=== PATIENT | female | born 1985 | race Two or more races ===

== ENCOUNTER 2020-08-22 06:18 | Day surgery (SDC) | payer MEDICAID, SELFPAY ==
[2020-08-19 15:34] LABS: BASOPHILS % (AUTO) 0.5 % (0.0-2.0); EOSINOPHILS # (AUTO) 0.2 K/uL (0-0.4); EOSINOPHILS % (AUTO) 1.8 % (0.0-4.0); HEMOGLOBIN 10.4 g/dL (12.0-16.0); LYMPHOCYTES # (AUTO) 1.3 K/uL (2.5-16.5); LYMPHOCYTES % (AUTO) 12.1 % (20.5-51.1); MEAN CORPUSCULAR HEMOGLOBIN 22 pg (27-31); MEAN CORPUSCULAR HGB CONC 32 g/dL (33-37); MEAN CORPUSCULAR VOLUME 67.9 fL (80-94); MONOCYTES # (AUTO) 0.6 K/uL (0.8-1.0); MONOCYTES % (AUTO) 5.5 % (1.7-9.3); NEUTROPHILS # (AUTO) 8.3 K/uL (1.8-7.7); NEUTROPHILS % (AUTO) 80.1 % (42.2-75.2); PLATELET COUNT (AUTO) 242 K/uL (140-450); RED BLOOD CELL COUNT(AUTO) 4.86 MIL/uL (4.20-5.40); RED CELL DISTRIBUTION WIDTH 17.9 % (11.6-13.7); WHITE BLOOD COUNT (AUTO) 10.4 K/uL (4.8-10.8)
[2020-08-19 15:41] LABS: BILIRUBIN,URINE NEGATIVE (NEGATIVE); BLOOD, URINE 3+ (NEGATIVE); COLOR,URINE YELLOW (YELLOW); LEUKOCYTE ESTERASE ,URINE 1+ (NEGATIVE); NITRITE, URINE NEGATIVE (NEGATIVE); PH,URINE 5.5 (5.0-9.0); UGLUCOSE NEGATIVE (NEGATIVE)
[2020-08-19 15:49] LABS: ALBUMIN 3.1 g/dL (3.4-5.0); ANION GAP 12.2 (8-16); APPEARANCE,URINE HAZY (CLEAR); CARBON DIOXIDE 26.4 mmol/L (21-32); CREATININE 0.7 mg/dL (0.6-1.3); POTASSIUM 3.6 mmol/L (3.5-5.1); TOTAL BILIRUBIN 0.3 mg/dL (0.0-1.0)
[2020-08-19 16:27] LABS: RBC,URINE >100 /HPF (0-5); WBC,URINE 20-60 /HPF (0-5)
[2020-08-21 12:42] LABS: BASOPHILS % (AUTO) 0.4 % (0.0-2.0); BILIRUBIN,URINE NEGATIVE (NEGATIVE); BLOOD, URINE TRACE-I (NEGATIVE); COLOR,URINE YELLOW (YELLOW); EOSINOPHILS # (AUTO) 0.2 K/uL (0-0.4); EOSINOPHILS % (AUTO) 1.9 % (0.0-4.0); HEMATOCRIT 32.5 % (36-48); LEUKOCYTE ESTERASE ,URINE TRACE (NEGATIVE); LYMPHOCYTES # (AUTO) 1.2 K/uL (2.5-16.5); LYMPHOCYTES % (AUTO) 12.3 % (20.5-51.1); MEAN CORPUSCULAR HEMOGLOBIN 21 pg (27-31); MEAN CORPUSCULAR HGB CONC 31 g/dL (33-37); MEAN CORPUSCULAR VOLUME 69.4 fL (80-94); MONOCYTES # (AUTO) 0.4 K/uL (0.8-1.0); MONOCYTES % (AUTO) 4.4 % (1.7-9.3); NEUTROPHILS # (AUTO) 7.8 K/uL (1.8-7.7); NITRITE, URINE NEGATIVE (NEGATIVE); PLATELET COUNT (AUTO) 237 K/uL (140-450); RED BLOOD CELL COUNT(AUTO) 4.68 MIL/uL (4.20-5.40); RED CELL DISTRIBUTION WIDTH 17.8 % (11.6-13.7); UGLUCOSE 1+ (NEGATIVE); WHITE BLOOD COUNT (AUTO) 9.7 K/uL (4.8-10.8)
[2020-08-21 12:43] LABS: APPEARANCE,URINE HAZY (CLEAR)
[2020-08-21 12:53] LABS: RBC,URINE 0-5 /HPF (0-5)
[2020-08-21 12:56] LABS: ALBUMIN 2.9 g/dL (3.4-5.0); ANION GAP 11.1 (8-16); CARBON DIOXIDE 26.5 mmol/L (21-32); CREATININE 0.7 mg/dL (0.6-1.3); POTASSIUM 3.6 mmol/L (3.5-5.1); TOTAL BILIRUBIN 0.3 mg/dL (0.0-1.0); YEAST,URINE Few /HPF (None Seen)
[~2020-08-22] VITALS: Ht 165.1 cm; Wt 106.1 kg
[2020-08-22] MEDS ORDERED: methylPREDNISolone SS 40 MG/ML VIAL IVP SCH (07:45)
[2020-08-22] MEDS ORDERED: METOCLOPRAMIDE 10 MG/2 ML INJ VIAL ONE (07:54)
[2020-08-22] MEDS ORDERED: SEVOFLURANE 250 ML BTL INH ONE (07:54)
[2020-08-22] MEDS ORDERED: ROCURONIUM 50 MG/5 ML VIAL IV ONE (07:54)
[2020-08-22] MEDS ORDERED: ONDANSETRON 4 MG/2 ML VIAL ONE (07:54)
[2020-08-22] MEDS ORDERED: LIDOCAINE 2% 100 MG/5 ML SYR IVP ONE (07:54)
[2020-08-22] MEDS ORDERED: methylPREDNISolone SS 40 MG/ML VIAL ONE (07:54)
[2020-08-22] MEDS ORDERED: PROPOFOL 200 MG/20 ML VIAL IV ONE (07:54)
[2020-08-22] MEDS ORDERED: fentaNYL citrate 0.05 MG/ML VIAL IVP PRN (08:20)
[2020-08-22] MEDS ORDERED: LACTATED RINGERS 1,000 ML IV SCH (08:20)
[2020-08-22] MEDS ORDERED: ONDANSETRON 4 MG/2 ML VIAL IVP PRN (08:20)
== END 2020-08-22 11:15 | disposition home or self-care (01) ==
LOC: MDS 06:18 → MMU 06:19 → MDS 11:15
PROVIDERS: ATTEND Obstetrics & Gynecology
DX: O34.32 Maternal care for cervical incompetence, second trimester (principal); O99.512 Diseases of the respiratory system complicating pregnancy, second trimester; J45.909 Unspecified asthma, uncomplicated; O99.612 Diseases of the digestive system complicating pregnancy, second trimester; K21.9 Gastro-esophageal reflux disease without esophagitis; O99.012 Anemia complicating pregnancy, second trimester; E66.9 Obesity, unspecified; D64.9 Anemia, unspecified; Z3A.15 15 weeks gestation of pregnancy; Z79.899 Other long term (current) drug therapy
CPT/HCPCS: 36415; 59320; 80053; 81001; 82948; 85025; 86886; 86900; 86901; 87086; J2001; J2405; J2704; J2765; J2920; J3490; J7120; U0003

== ENCOUNTER 2020-09-07 19:57 | Emergency (ER) | payer MEDICAID, SELFPAY ==
[~2020-09-07] VITALS: Ht 167.6 cm; Wt 123.8 kg
[2020-09-07 20:05] VITALS: BP 131/80
--- NOTE | 2020-09-07 20:10 | NUR ---
PATIENT AMBUALTED TO LOBBY WITH STEADY GAIT. PATIENT UNABLE TO GIVE URINE SAMPLE AT THIS TIME.
--- NOTE | 2020-09-07 20:49 | NUR ---
35 y/o female bib self for left lower/upper flank pain for 2 weeks. Pain is 6/10 acute sharp-needle like pain; nonradiating. A/ox4; GCS 15; Respiratory-Symmetrical and unlabored; GI-abdomen; soft nondistended; GI- Left flank pain; tender upon touch; +dysuria +frequency. No noted bleeding. Patient is 18 weeks . ERMD made aware. Bed set at lowest setting; side rails x1 nkda pmh: Asthma; GERD meds: Qvar; albuterl; omeprazole surgery-Gastric sleeve (2013) Csection (2012) GTPAL:3,2,0,0, 2 Addendum: 09/07/20 at 2138 by MEDLEATHA patient is currently on depo provera
[2020-09-07 21:47] LABS: BASOPHILS # (AUTO) 0.1 K/uL (0.00-0.22); EOSINOPHILS # (AUTO) 0.3 K/uL (0-0.4); EOSINOPHILS % (AUTO) 2.7 % (0.0-4.0); HEMATOCRIT 31.9 % (36-48); HEMOGLOBIN 9.8 g/dL (12.0-16.0); LYMPHOCYTES # (AUTO) 1.7 K/uL (2.5-16.5); LYMPHOCYTES % (AUTO) 17.5 % (20.5-51.1); MEAN CORPUSCULAR HEMOGLOBIN 21 pg (27-31); MEAN CORPUSCULAR HGB CONC 31 g/dL (33-37); MEAN CORPUSCULAR VOLUME 68.1 fL (80-94); MONOCYTES # (AUTO) 0.6 K/uL (0.8-1.0); MONOCYTES % (AUTO) 5.7 % (1.7-9.3); NEUTROPHILS # (AUTO) 7.3 K/uL (1.8-7.7); NEUTROPHILS % (AUTO) 73.1 % (42.2-75.2); PLATELET COUNT (AUTO) 260 K/uL (140-450); RED BLOOD CELL COUNT(AUTO) 4.68 MIL/uL (4.20-5.40); RED CELL DISTRIBUTION WIDTH 17.6 % (11.6-13.7); WHITE BLOOD COUNT (AUTO) 9.9 K/uL (4.8-10.8)
[2020-09-07 21:48] LABS: APPEARANCE,URINE CLEAR (CLEAR); BILIRUBIN,URINE NEGATIVE (NEGATIVE); BLOOD, URINE NEGATIVE (NEGATIVE); COLOR,URINE YELLOW (YELLOW); LEUKOCYTE ESTERASE ,URINE NEGATIVE (NEGATIVE); NITRITE, URINE NEGATIVE (NEGATIVE); PH,URINE 5.5 (5.0-9.0); UGLUCOSE NEGATIVE (NEGATIVE)
[2020-09-07] MEDS ORDERED: ACETAMINOPHEN EXTRA STRENGTH 500 MG TAB PO ONE (21:55)
[2020-09-07] MEDS ORDERED: NACL 0.9% 1,000 ML IV ONE (21:55)
[2020-09-07 22:00] LABS: ANION GAP 16.5 (8-16); CARBON DIOXIDE 23.2 mmol/L (21-32); CREATININE 0.7 mg/dL (0.6-1.3); POTASSIUM 3.7 mmol/L (3.5-5.1)
--- NOTE | 2020-09-07 22:00 | NUR ---
Patient sitting quietly in bed at this time. No acute distress noted.
[2020-09-07 22:06] LABS: ALBUMIN 3.1 g/dL (3.4-5.0); TOTAL BILIRUBIN 0.3 mg/dL (0.0-1.0)
--- NOTE | 2020-09-07 23:00 | NUR ---
Patient resting quietly in bed. pain is a 4/10 at this time.
[2020-09-07] MEDS ORDERED: ACET-10509 PO (23:27)
[2020-09-07] MEDS ORDERED: NITR100C7 PO (23:27)
[2020-09-07 23:58] VITALS: BP 129/78
--- NOTE | 2020-09-07 23:58 | NUR ---
Patient discharged with v/s stable. Written and verbal after care instructions given and explained. Patient alert, oriented and verbalized understanding of instructions. Ambulatory with steady gait. All questions addressed prior to discharge. ID band removed. Patient advised to follow up with PMD. Rx of acetaminophen and antibiotics given. Patient educated on indication of medication including possible reaction and side effects. Opportunity to ask questions provided and answered.
--- NOTE | 2020-09-13 19:49 | NUR ---
LATE ENTRY- 0.9% NS BOLUS DISCONTINUED AT 2345
== END 2020-09-07 23:58 | disposition home or self-care (01) ==
LOC: MED 19:57
DX: O26.892 Other specified pregnancy related conditions, second trimester (principal); R10.9 Unspecified abdominal pain; J45.909 Unspecified asthma, uncomplicated; K21.9 Gastro-esophageal reflux disease without esophagitis; Z3A.18 18 weeks gestation of pregnancy
CPT/HCPCS: 36415; 76770; 76815; 80053; 81003; 81025; 83605; 83690; 85025; 87040; 96360; 99285; J7030

== ENCOUNTER 2020-10-28 15:45 | Observation (INO) | payer MEDICAID, SELFPAY ==
[~2020-10-28] VITALS: Ht 165.1 cm; Wt 124.3 kg
[~2020-10-28 15:45] MED LIST: ACET-10509 PO; NITR100C7 PO
[2020-10-28] MEDS ORDERED: LACTATED RINGERS 1,000 ML IV SCH (16:30)
[2020-10-28] MEDS ORDERED: SODIUM FERRIC GLUCONATE 125 MG in NACL 0.9% 100 ML IV SCH (16:30)
[2020-10-28] MEDS ORDERED: NACL 0.9% 1,000 ML IV SCH (17:25)
[2020-10-28 18:05] VITALS: BP 121/56
== END 2020-10-28 20:30 | disposition home or self-care (01) ==
LOC: MFCC 15:45
PROVIDERS: ADMIT Obstetrics & Gynecology; ATTEND Obstetrics & Gynecology
DX: O26.892 Other specified pregnancy related conditions, second trimester (principal); R10.9 Unspecified abdominal pain; Z3A.25 25 weeks gestation of pregnancy
CPT/HCPCS: 59025; 81000; 96361; 96365; G0378; J2916